=== PATIENT | female | born 1940 | race Caucasian/White ===

== ENCOUNTER → 2018-12-01 | Day surgery (SDC) | payer OTHER, BC ==
[~2018-12-01] VITALS: Ht 160 cm; Wt 67.6 kg
[~2018-12-01] MED LIST: CALCIUM 600 +1 EAC1 PO; FLOVENT HFA12 G1 INH; NORVASC5 M1 PO; VENTOLIN HFA 1818 GM INH
[2018-12-01 12:51] VITALS: BP 141/71
--- NOTE | 2018-12-05 06:16 | O ---
[facility] [place] [address] [place] [address] OPERATIVE REPORT Name: CUCA LEVY Room #: REG [facility]#: [id number] Admission: 12/01/18 Attend Phys: Levon Willis MD Discharge: Date of : 44 Report #: [id number] THIS REPORT FOR: //name// CC: Jayla Willis DATE OF SERVICE: 12/01/2018 SURGEON: Levon Willis MD PREOPERATIVE DIAGNOSIS: Bilateral nasal lacrimal duct obstruction. POSTOPERATIVE DIAGNOSIS: Bilateral nasal lacrimal duct obstruction. OPERATION PERFORMED: Bilateral endoscopic dacryoplasty with silicone intubation. ANESTHESIA: General. COMPLICATIONS: None. INDICATIONS FOR SURGERY: This patient has acquired bilateral nasal lacrimal duct stenosis with chronic tearing and discharge, both eyes. The current procedures are undertaken in order to improve the patient's level of lacrimal outflow and visual clarity. Informed consent was obtained to include but not limited to the potential risks for damage to the eye, loss of vision, bleeding, infection, failure to improve the problem and need for further surgery. DESCRIPTION OF OPERATION: The patient was taken to the operating room, where general anesthesia was administered. The medial canthi were anesthetized with 2% Xylocaine with epinephrine mixed with equal parts of 0.75% Marcaine with Wydase. The lateral yun of the nose were then bilaterally injected with the same anesthetic mixture. The nose was packed with Afrin-soaked cottonoids. The patient was then prepped and draped in the usual sterile fashion. A moist compress was placed on the left eye while attention was turned to the right side. The superior and inferior puncta were then atraumatically dilated with a punctum dilator. A size 0 lacrimal probe was then passed through the superior canalicular system and through the stenosed nasal lacrimal duct. The nasal packing was removed and the endoscope was brought into the field. The inferior turbinate was gently infractured with a [place] periosteal elevator to allow [facility] [address] [place] [address] OPERATIVE REPORT Name: CUCA LEVY Room #: REG [facility].#: [id number] Admission: 12/01/18 Attend Phys: Levon Willis MD Discharge: Date of : 44 Report #: [id number] visualization of the inferior meatus in the area of the opening of the valve of Hasner in the nose. The probe was found and confirmed to be in the proper location. It was removed and subsequently replaced with a size 1 and a size 2 Jang probe, which also had their passage confirmed endoscopically to be in the proper location. A 3 by 15 LacriCatheter was lubricated with a small quantity of ophthalmic antibiotic ointment. The LacriCatheter was then passed through the superior canalicular system and the stenosed nasal lacrimal duct. The LacriCatheter was confirmed to be in the proper location endoscopically intranasally in the inferior meatus. The LacriCatheter was inflated to 9 atmospheres for 90 seconds and deflated. The catheter was then inflated to 9 atmospheres for 60 seconds. The catheter was then withdrawn to the proximal black ring. It was then inflated to 9 atmospheres for 90 seconds. The balloon was then deflated and reinflated to 9 atmospheres for 60 seconds. The balloon was the aspirated and withdrawn to the distal black ring. It was then inflated to 9 atmospheres for 90 seconds. The balloon was deflated and reinflated to 9 atmospheres for 60 seconds. The balloon was then deflated and vigorously aspirated as it was withdrawn through the superior canalicular system. A Randle tube was then passed through the superior canalicular system and out the dilated duct. The Randle tube was secured under the inferior turbinate in the inferior meatus with a Randle hook and retrieved endoscopically. The Randle tube was then passed through the inferior canalicular system in a similar fashion and was retrieved endoscopically in the nose atraumatically. The Randle tube was then secured to itself with 3 square throws and then to the lateral wall of the nose with a 5-0 Prolene suture. Attention was then turned to the other side, where the same procedure was performed. Antibiotic steroid drops were then placed in both eyes. A small quantity of ophthalmic antibiotic ointment was placed on the Randle tube. The patient was then transported to the recovery area with no anesthetic or operative complications being noted. <ELECTRONICALLY SIGNED> By: Levon Willis MD 12/05/18 [id number] Levon Willis MD /nt
== END | disposition home or self-care (01) ==
LOC: OR 11:35
DX: H04.553 Acquired stenosis of bilateral nasolacrimal duct (principal); I10 Essential (primary) hypertension; J45.909 Unspecified asthma, uncomplicated; Z98.890 Other specified postprocedural states; Z79.899 Other long term (current) drug therapy; Z88.2 Allergy status to sulfonamides
CPT/HCPCS: 50010; 50101; 50261; 50386; 50398; 51777; 56528; 62110; 62900; 64037; 70005